=== PATIENT | male | born 1950 | race Caucasian/White ===

== ENCOUNTER → 2017-01-13 | Outpatient (CLI) | payer OTHER ==
[~2017-01-13] MED LIST: LISI20TA55 PO; SIMV20TA2 PO; TADA10TA PO
[2017-01-13 11:04] LABS: BASO % 0.3 %; BASO ABS # 0.02 K/uL (0-0.2); COMPLETE YES; EOS % 1.1 %; IG% 0.3 %; LYMPH % 22.3 %; LYMPH ABS # 1.76 K/uL (1.2-3.4); MEAN CELL VOLUME 96.6 fL (80-100); MEAN CORPUSCULAR HEMOGLOBIN 33.3 pg (25-34); MEAN CORPUSCULAR HGB CONC 34.5 g/dl (32-36); MEAN PLATELET VOLUME 10.6 fL (7.4-10.4); MONO % 6.4 %; NEUT % 69.6 %; PLATELET COUNT 184 K/uL (130-400); RED BLOOD COUNT 5.07 M/uL (4.7-6.1); WHITE BLOOD COUNT 7.91 K/uL (4.8-10.8)
[2017-01-13 11:14] LABS: PARTIAL THROMBOPLASTIN RATIO 1.1; PROTHROMBIN TIME (PATIENT) 11.2 SECONDS (9.0-12.0)
--- NOTE | 2017-01-13 11:24 | DIAGNOSTIC IMAGING REPORT ---
TWO VIEW CHEST CLINICAL HISTORY: Nephrolithiasis. Preoperative examination. FINDINGS: PA and lateral chest radiographs are compared to chest x-ray and chest CT dated 04/07/2015. The heart is mildly enlarged. The pulmonary vasculature is noncongested. The lungs and pleural spaces are clear. There is no pneumothorax. The bony thorax appears intact. IMPRESSION: No active disease in the chest. Electronically signed by: Gerard Lehman M.D. 01/13/2017 11:22 AM Dictated Date/Time: 01/13/2017 11:21 AM
[2017-01-13 11:28] LABS: ALT/SGPT 36 U/L (12-78); AST/SGOT 21 U/L (15-37); BLOOD UREA NITROGEN 24 mg/dl (7-18); BUN/CREATININE RATIO 25.4 (10-20); CALCIUM 8.8 mg/dl (8.5-10.1); CARBON DIOXIDE 29 mmol/L (21-32); CHLORIDE 103 mmol/L (98-107); CREATININE 0.96 mg/dl (0.60-1.40); GLUCOSE 92 mg/dl (70-99); SODIUM 139 mmol/L (136-145)
[2017-01-13 11:39] LABS: ALKALINE PHOSPHATASE 79 U/L (45-117); CHOLESTEROL 160 mg/dl (0-200); CHOLESTEROL/HDL RATIO 3.1; HDL CHOLESTEROL 51 mg/dl; LDL CHOLESTEROL CALCULATED 82 mg/dl; PROSTATE SPECIFIC ANTIGEN 0.355 ng/ml (0.000-4.000); TRIGLYCERIDES 133 mg/dl (0-150); VERY LOW DENSITY LIPOPROT CALC 27 mg/dl
== END | disposition home or self-care (01) ==
LOC: C.LAB 09:53
PROVIDERS: ATTEND Specialist
DX: Z01.818 Encounter for other preprocedural examination (principal); N20.0 Calculus of kidney; I10 Essential (primary) hypertension; K76.0 Fatty (change of) liver, not elsewhere classified; E78.5 Hyperlipidemia, unspecified; R35.1 Nocturia; Z11.59 Encounter for screening for other viral diseases

== ENCOUNTER → 2017-04-07 | Outpatient (CLI) | payer OTHER ==
[~2017-04-07] MED LIST changes: +ACET1TAB84 PO; +ALLO300T2 PO; +DOXY25TA7 PO; +IBUP200C14 PO; +MELATAB2 PO; +MULT-506 PO; +potassium citrate PO
[2017-04-07 16:47] LABS: ALT/SGPT 30 U/L (12-78); BLOOD UREA NITROGEN 32 mg/dl (7-18); BUN/CREATININE RATIO 26.3 (10-20); CARBON DIOXIDE 29 mmol/L (21-32); CHLORIDE 104 mmol/L (98-107); GLUCOSE 85 mg/dl (70-99); SODIUM 141 mmol/L (136-145)
[2017-04-07 16:50] LABS: ALB/GLOB RATIO 1.2 (0.9-2); ALKALINE PHOSPHATASE 68 U/L (45-117); AST/SGOT 23 U/L (15-37)
[2017-04-07 17:05] LABS: CALCIUM 9.1 mg/dl (8.5-10.1)
== END | disposition home or self-care (01) ==
LOC: C.LAB 15:33
PROVIDERS: ATTEND Internal Medicine Geriatric Medicine
DX: I10 Essential (primary) hypertension (principal)

== ENCOUNTER → 2017-04-11 | Outpatient (CLI) | payer OTHER ==
--- NOTE | 2017-04-11 09:45 | DIAGNOSTIC IMAGING REPORT ---
Brain MRA HISTORY: Mental status change R42 [id number] TECHNIQUE: 3-D [id number] MRA of the brain was performed without contrast. COMPARISON STUDY: None. FINDINGS: Visualized intracranial internal carotid arteries, distal vertebral arteries, and basilar artery are widely patent. There is no significant stenosis, occlusion, or aneurysm seen within the bilateral ACAs, MCAs, or community theater actor. IMPRESSION: No significant stenosis, occlusion, or aneurysm within the benton of [place]. Electronically signed by: Lakhwinder Sung M.D. 04/11/2017 9:44 AM Dictated Date/Time: 04/11/2017 9:40 AM
== END | disposition home or self-care (01) ==
LOC: C.MRI 08:52
PROVIDERS: ATTEND Internal Medicine Geriatric Medicine
DX: R42 Dizziness and giddiness (principal)

== ENCOUNTER → 2017-04-14 | Outpatient (CLI) | payer OTHER ==
[~2017-04-14] MED LIST changes: +GADAVIST IV PRN
--- NOTE | 2017-04-14 12:49 | DIAGNOSTIC IMAGING REPORT ---
MRI OF THE BRAIN WITHOUT AND WITH IV CONTRAST CLINICAL HISTORY: VERTIGO mental status change COMPARISON STUDY: No previous studies for comparison. TECHNIQUE: Utilizing a 1.5 Jeny magnet and dedicated coil, multiplanar, multiecho imaging of the brain was performed pre and postcontrast administration. IV administration of 8 mL of Gadavist contrast was uneventful. FINDINGS: Diffusion-weighted images are normal. Signal characteristics of the cerebellar as well as cerebral hemispheres are unremarkable. The ventricular system is midline. There is no postcontrast enhancement. The sella and parasellar regions are unremarkable. Internal artery canals are symmetric. IMPRESSION: Normal study. Electronically signed by: Lakhwinder Sung M.D. 04/14/2017 12:47 PM Dictated Date/Time: 04/14/2017 12:45 PM
== END | disposition home or self-care (01) ==
LOC: C.MRIBC 11:41
PROVIDERS: ATTEND Internal Medicine Geriatric Medicine
DX: R42 Dizziness and giddiness (principal)

== ENCOUNTER → 2017-05-18 | Outpatient (CLI) | payer OTHER ==
[~2017-05-18] MED LIST changes: -ACET1TAB84 PO; -ALLO300T2 PO; -DOXY25TA7 PO; -GADAVIST IV PRN; -IBUP200C14 PO; -MELATAB2 PO; -MULT-506 PO; -potassium citrate PO
== END | disposition home or self-care (01) ==
LOC: C.PATHSPEC 16:47
PROVIDERS: ATTEND Dermatology
DX: D23.72 Other benign neoplasm of skin of left lower limb, including hip (principal)

== ENCOUNTER → 2017-06-09 | Outpatient (CLI) | payer OTHER ==
[2017-06-09 12:35] LABS: ALT/SGPT 31 U/L (12-78); AST/SGOT 26 U/L (15-37); BLOOD UREA NITROGEN 27 mg/dl (7-18); BUN/CREATININE RATIO 24.2 (10-20); CALCIUM 8.9 mg/dl (8.5-10.1); CARBON DIOXIDE 25 mmol/L (21-32); CHLORIDE 106 mmol/L (98-107); GLUCOSE 90 mg/dl (70-99); MAGNESIUM 2.2 mg/dl (1.8-2.4); POTASSIUM 4.1 mmol/L (3.5-5.1); SODIUM 139 mmol/L (136-145); URIC ACID 8.5 mg/dl (2.6-7.2)
[2017-06-09 12:38] LABS: ALB/GLOB RATIO 1.2 (0.9-2); ALKALINE PHOSPHATASE 67 U/L (45-117)
== END | disposition home or self-care (01) ==
LOC: C.LAB 09:50
PROVIDERS: ATTEND Specialist
DX: N20.0 Calculus of kidney (principal)

== ENCOUNTER 2017-10-19 05:21 | Observation (INO) | payer OTHER ==
[2017-10-06 14:28] VITALS: BMI 34.0
--- NOTE | 2017-10-06 14:56 | PAT Medication Instructions ---
Service Date Oct 06, 2017. Current Home Medication List Acetaminophen (Tylenol Arthritis Ext Rel), 650 MG PO PRN Allopurinol (Zyloprim), 300 MG PO QAM Doxylamine Succinate (Sleep) (Unisom), 12.5 MG PO HS PRN for RN Ibuprofen (Advil), 200 MG PO PRN Lisinopril/Hctz (Prinzide 20-25MG), 0.5 TAB PO QAM Melatonin (Melatonin Maximum Strengt), 1 TAB PO HS PRN for PRN Multivitamin (Multivitamin), 0.5 TAB PO BID Simvastatin (Zocor), 20 MG PO QPM [potassium citrate], 20 MEQ PO BID Medication Instructions For Your Scheduled Surgery - Check with surgeon for instructions: Ibuprofen (Advil), 200 MG PO PRN - Hold the following medications the morning of surgery: [potassium citrate], 20 MEQ PO BID Lisinopril/Hctz (Prinzide 20-25MG), 0.5 TAB PO QAM Multivitamin (Multivitamin), 0.5 TAB PO BID - Take the following medications the morning of surgery with a sip of water: Acetaminophen (Tylenol Arthritis Ext Rel), 650 MG PO PRN (okay to take up to 4 hours prior to surgery if needed) Allopurinol (Zyloprim), 300 MG PO QAM - Take the following medications as scheduled the night before surgery: Doxylamine Succinate (Sleep) (Unisom), 12.5 MG PO HS PRN for RN (if needed) [potassium citrate], 20 MEQ PO BID Simvastatin (Zocor), 20 MG PO QPM Melatonin (Melatonin Maximum Strengt), 1 TAB PO HS PRN for PRN (if needed) Multivitamin (Multivitamin), 0.5 TAB PO BID If you have any questions please call us at [phone] or [phone] or [phone]
[2017-10-06 15:04] LABS: BASO % 0.4 %; BASO ABS # 0.02 K/uL (0-0.2); EOS ABS # 0.05 K/uL (0-0.5); HEMATOCRIT 48.7 % (42-52); HEMOGLOBIN 16.4 g/dL (14.0-18.0); IG# 0.01 K/uL (0.00-0.02); LYMPH % 35.2 %; MEAN CELL VOLUME 98.6 fL (80-100); MEAN CORPUSCULAR HEMOGLOBIN 33.2 pg (25-34); MEAN CORPUSCULAR HGB CONC 33.7 g/dl (32-36); MEAN PLATELET VOLUME 10.7 fL (7.4-10.4); MONO ABS # 0.51 K/uL (0.11-0.59); NEUT % 53.2 %; NEUT ABS # 2.73 K/uL (1.4-6.5); PLATELET COUNT 152 K/uL (130-400); RED CELL DISTRIBUTION WIDTH CV 13.3 % (11.5-14.5); RED CELL DISTRIBUTION WIDTH SD 47.8 fL (36.4-46.3); WHITE BLOOD COUNT 5.12 K/uL (4.8-10.8)
[2017-10-06 15:14] LABS: CREATININE 0.98 mg/dl (0.60-1.40); POTASSIUM 3.8 mmol/L (3.5-5.1)
[2017-10-19] VITALS (8 sets, daily range): BP systolic 100–178; BP diastolic 52–88; PULSE 46–73; TEMP 36.5–37.3; O2SAT 92–96; Ht 177.8 cm; Wt 106.9 kg
[~2017-10-19] VITALS: Ht 177.8 cm; Wt 106.9 kg
[~2017-10-19 05:21] MED LIST changes: +ACET1TAB84 PO; +ALLO300T2 PO; +DOXY25TA8 PO; +IBUP200C14 PO; +MELATAB2 PO; +MULT-506 PO; -TADA10TA PO; +potassium citrate PO
[2017-10-19] MEDS ORDERED: LACTATED RINGER'S 1000ML 1,000 ML IV SCH ×2 (06:00→12:45)
[2017-10-19] MEDS ORDERED: PROPOFOL IV EMULSION 10 MG/ML 20 ML VIAL IV ONE (06:30)
[2017-10-19] MEDS ORDERED: MIDAZOLAM HCL 1 MG/ML 2ML VIAL ONE (06:30)
[2017-10-19] MEDS ORDERED: ONDANSETRON INJ 2 MG/ML 2 ML VIAL ONE ×2 (06:30→10:34)
[2017-10-19] MEDS ORDERED: FENTANYL CITRATE INJ 50 MCG/1 ML 2 ML VIAL ONE ×3 (06:30→09:43)
[2017-10-19] MEDS ORDERED: LIDOCAINE HCL 2% 2 ML VIAL (20MG/ML) ONE (06:30)
[2017-10-19] MEDS ORDERED: ACETAMINOPHEN 1000 MG/100 ML IV IV ONE (06:52)
[2017-10-19] MEDS ORDERED: FENTANYL CITRATE INJ 50 MCG/1 ML 2 ML VIAL IV PRN (07:00)
[2017-10-19] MEDS ORDERED: ATROPINE SULFATE 0.1 MG/ML 5ML SYR IV PRN (07:00)
[2017-10-19] MEDS ORDERED: HYDROmorphone INJ 1 MG/ML SYR IV PRN (07:00)
[2017-10-19] MEDS ORDERED: EpHEDrine SULFATE INJ 50 MG/ML AMP IV PRN (07:00)
[2017-10-19] MEDS ORDERED: PROMETHAZINE HCL INJ 12.5 MG in SODIUM CHLORIDE 0.9% 50ML 50 ML IV PRN (07:00)
[2017-10-19] MEDS ORDERED: ONDANSETRON INJ 2 MG/ML 2 ML VIAL IV PRN ×2 (07:00→10:30)
[2017-10-19] MEDS ORDERED: BACITRACIN 50000 UNIT VIAL ONE (07:02)
[2017-10-19] MEDS ORDERED: BUPIVACAINE 0.5 % 5 MG/1 ML MPF 30ML VIAL ONE (07:02)
[2017-10-19] MEDS ORDERED: OXYC-57 PO (07:38)
--- NOTE | 2017-10-19 07:41 | Discharge Instructions ---
Discharge Instructions Date of Service Oct 19, 2017. Visit Reason for Visit: Bilateral Inguinal Hernia Discharge Discharge Diagnosis / Problem: hernia repair Discharge Goals Goal(s): Decrease discomfort Activity Recommendations Activity Limitations: as noted below Lifting Limitations: no more than 10 pounds Shower/Bathe: tomorrow Driving or Machine Use: 1 week Anesthesia . Post Anesthesia Instructions: If you have had General Anesthesia or IV Sedation: * Do not drive today. * Resume driving when surgeon permits. * Do not make important decisions or sign legal documents today. * Call surgeon for: 1. Temperature elevations greater than 101 degrees F. 2. Uncontrollable pain. 3. Excessive bleeding. 4. Persistent nausea and vomiting. 5. Medication intolerance (nausea, vomiting or rash). * For nausea and vomiting use only clear liquids such as: tea, soda, bouillon until nausea subsides, then gradually increase diet as tolerated. * If you have any concerns or questions, call your surgeon's office. If physician is unavailable and it is an emergency, call 911 or go to the nearest emergency room. . Instructions / Follow-Up Instructions / Follow-Up Dr. Blue in 1 week, call [phone] if you do not already have an appt or if you have any questions Diet Recommendations Recommended Home Diet: no limitations Pending Studies Studies pending at discharge: no Medical Emergencies . Who to Call and When: Medical Emergencies: If at any time you feel your situation is an emergency, please call 911 immediately. . Non-Emergent Contact Non-Emergency issues call your: Surgeon Call Non-Emergent contact if: you have a fever, temperature is above 101.5, your pain is not controlled, wound has increased redness, you have any medication questions . . "Provider Documentation" section prepared by Alexsander Lam. . [place] Drug Monitoring Program Search Results: no issues identified
--- NOTE | 2017-10-19 08:04 | History & Physical Bridge Note ---
H&P Re-Evaluation Bridge Note: I have examined the patient, reviewed the History & Physical and in the interval since the performance of the History & Physical I have noted the following changes of clinical significance: No changes noted pt marked, SO at bedside, all questions answered
[2017-10-19] MEDS: BUPIVACAINE 0.5 % 5 MG/1 ML MPF 30ML VIAL ONE ×2 (10:15→10:16)
[2017-10-19] MEDS ORDERED: OXYCODONE/ACETAMINOPHEN 5-325 TAB PO PRN (10:30)
[2017-10-19] MEDS ORDERED: MoRPHine SULFATE 4 MG/ML 1 ML CARP\\VIAL IV PRN (10:30)
[2017-10-19] MEDS ORDERED: GLYCOPYRROLATE INJ 0.2 MG/ML VIAL ONE (10:34)
[2017-10-19] MEDS ORDERED: ROCURONIUM BROMIDE 10 MG/ML 5 ML VIAL IV ONE (10:34)
[2017-10-19] MEDS ORDERED: DEXAMETHASONE SOD INJ 4 MG/ML VIAL ONE (10:34)
[2017-10-19] MEDS ORDERED: NEOSTIGMINE METHYLSULFATE 5 MG/5 ML SYR ONE (10:34)
--- NOTE | 2017-10-19 10:40 | [facility] Operative Report ---
Operative Report Operative Date Oct 19, 2017. Pre-Operative Diagnosis Bilateral inguinal hernias without obstruction or gangrene Post-Operative Diagnosis Bilateral inguinal hernias without obstruction or gangrene left direct with indirect sliding and lipoma cord, right direct and liupoma cord Procedure(s) Performed Open repair left direct, excision lipoma of cord and indirect sliding left inguinal hernia with mesh and open repair of direct right inguinal hernia and direct and excision lipoma of cord with mesh Surgeon Dr. Pito Blue Desktop Publishing Associate Surgeon(s) Alexsander Lam PA-C Estimated Blood Loss 10 mL Findings large left direct and sliding ind hernia and lipoma cord, right direct and lipoma cord Specimens Microbiology #1. Cath, Urine Routine C/S, Gram Stain, Anerobic/Aerobic, Fungal/Yeast Sent to lab at 0840, carried by OR aide. Permanent specimens A: Left Inguinal Hernia Sac B: Lipoma of Cord, Right Anesthesia local block .5 % marcAINE PLAIN (30CC TOTAL) AND GENERAL ANESTHESIA I attest to the content of the Intraoperative Record and any orders documented therein. Any exceptions are noted below.
--- NOTE | 2017-10-19 11:07 | Anesthesiology Progress Note ---
Anesthesia Post Op Note Date & Time Oct 19, 2017 at 11:07 Vital Signs Pain Intensity: 0 Vital Signs Past 12 Hours Date Time Temp Pulse Resp B/P (MAP) Pulse Ox O2 Delivery O2 Flow Rate FiO2 10/19/17 11:00 52 12 133/76 98 Oxymask 3 10/19/17 10:50 54 12 147/78 97 Oxymask 3 10/19/17 10:40 59 12 138/76 95 Oxymask 5 10/19/17 10:30 36.4 62 12 140/82 99 Oxymask 5 10/19/17 05:42 36.6 62 18 154/72 (99) 95 Room Air Notes Mental Status: alert / awake / arousable, participated in evaluation Pt Amnestic to Procedure: Yes Nausea / Vomiting: adequately controlled Pain: adequately controlled Airway Patency, RR, SpO2: stable & adequate BP & HR: stable & adequate Hydration State: stable & adequate Anesthetic Complications: no major complications apparent
--- NOTE | 2017-10-19 11:57 | OPERATIVE REPORT ---
DATE OF OPERATION: 10/19/2017 PREOPERATIVE DIAGNOSIS: Bilateral inguinal hernia. POSTOPERATIVE DIAGNOSIS: Same with left indirect (sliding) hernia and direct hernia, lipoma of the cord, right direct hernia and lipoma of the cord. PROCEDURE: Bilateral inguinal hernia repairs, tension free with Marlex mesh and excision lipoma of the cord. SURGEON: Dr. Blue. ENGINEER BOOSTER AND EXHAUSTER: Scott Lam PA-C. OPERATION AND FINDINGS: SUMMARY: The patient was brought into the operating room theater, Eric catheter had been inserted. The abdomen was prepped with Betadine scrubbing solution and properly draped. We used a skin marker to zoraida the skin incision prior to making the incision and prior to prepping the patient. Incision was made first in the left lower quadrant, so the patient had more symptomatic hernia there, larger hernia. The incision was approximately 4 inches long, deepened through subcutaneous tissue down to the external oblique. Some vessels were ligated in the subQ with 2-0 silk. External oblique was opened along the course of its fibers in the external ring. What I identified at this time was that we elevated the cord and its structures, the patient had a significant amount of tissue going through, pretty much no wall left in the inguinal canal and also as we dissected out, we were able to find an indirect hernia which showed a sigmoid colon sliding component to the area. That opening that we had made was closed with running chromic suture, therefore we did not dissect out and cut out any of the lateral attachments to the hernial sac. We freed it up sequentially from the surrounding tissue, identified the cord and its structures, adherent to the hernia sac over a Poca drain. Once we freed this up, we also identified the patient had a lipoma of the cord coming through which we ligated at its base at the internal ring and resected it. Once this had been completed, then we brought in a sheet of Marlex mesh onto the field, a large sheet that we used for both hernias. At this point prior to repairing the left inguinal area since he had a significant amount of direct defect we imbricated some transversalis fibers with interrupted 3-0 silk suture to really get it out of the way reconstructing the internal ring pretty much that could only accommodate a hemostat. There was no nervous tissue on the left side that was easily identifiable. There was one fine nerve that seemed to be incorporated and strangulated as it went through the external oblique. Rather than leave it I decided to sacrifice it. The mesh was brought up on the field and sutured with 2-0 Prolene suture. The symphysis pubis, shelving portion inguinal ligament, above the conjoined tendon circumferentially around to reconstruct the internal ring that could only accommodate the tip of a hemostat. The fascia pretty much was placed subfascially external oblique, 3-0 silk was used to the external oblique fascia over the mesh. 2-0 Vicryl was used for the subQ. Paresh we didn't use at this time, we will wait until the end to close the skin incision. When this was completed the right lower quadrant was approached in a similar fashion using preemptive local analgesia with 0.5% Marcaine infiltrated the skin only 2 fingerbreadths medial anterior to the iliac crest, made an incision which we tried to make a mirror image to the left lower quadrant, deepened through subcutaneous tissue. Some larger venous plexus were ligated with 2-0 silk sutures. At this point we dissected down onto the external oblique. The external oblique was opened along the course of its fibers to the external ring. We could identify that the patient had an incarcerated omental fat at the external ring. This is returned that would be a large lipoma of the cord, it actually had gone through and had been longstanding in the external oblique fascia and the cord structures. We elevated this, we identified that the cord over a Poca drain, identified the patient had a direct defect. There is no indirect component except a lipoma which we resected, ligating its base with 2-0 silk suture. At this point, we then brought in a sheet of Marlex mesh and sutured it onto the symphysis pubis, shelving portion and conjoined tendon with 2-0 Prolene suture. Prior to doing that, to get the direct defect which the patient, he did not have an indirect hernia and pushed everything into the preperitoneal area by approximating some transversalis fascia. The mesh was adherent, cut tension free type. The external oblique was closed mesh and the cord structure with 2-0 silk suture, 3-0 Dexon and paresh for skin edges bilaterally. The procedure was tolerated well by the patient. Estimated blood loss approximately 10 mL for both sides total and was taken to recovery room in good condition. I attest to the content of the Intraoperative Record and any orders documented therein. Any exceptions are noted below. MTDD
[2017-10-19] MEDS ORDERED: IV FLUIDS COMPLETED PRN (12:15)
[2017-10-19] MEDS: LISINOPRIL/HCTZ 20/25MG TAB PO SCH (15:08)
--- NOTE | 2017-10-19 15:30 | NUR ---
OBS/ID: Patient is alert and oriented. Vitals stable on RA. Disconnected IVF per order. Patient is voiding adequately. (I) in room without concern. Tolerating diet without issue. B groin dressing intact, R dressing without noted drainage which seems to be controlled/stopping as drainage is darkening/drying. Denies pain complaints. Likely discharge to home tomorrow. Will continue to monitor.
--- NOTE | 2017-10-19 20:00 | NUR ---
OBS: No change from previous assessment.
[2017-10-19] MEDS ORDERED: DOXYLAMINE SUCCINATE 25 MG PO PRN ×2 (20:15→20:30)
[2017-10-19] MEDS ORDERED: NURSING VERBAL MED ORDER ONE (21:00)
[2017-10-19] MEDS: POTASSIUM CITRATE 10 MEQ TAB PO SCH (21:32)
--- NOTE | 2017-10-20 | NUR ---
OBS: Patient alert and oriented x4. Saline locked. Pain managed with PO medications. OOB independently. Call girard in reach, will continue to monitor.
[2017-10-20] MEDS: OXYCODONE/ACETAMINOPHEN 5-325 TAB PO PRN ×2 (00:13→04:16)
[2017-10-20 03:22] VITALS: BP 111/55; PULSE 60; TEMP 37; O2SAT 93
--- NOTE | 2017-10-20 04:00 | NUR ---
OBS: Patient resting in bed at this time. Pain managed with PO medications. Call girard in reach, will continue to monitor.
--- NOTE | 2017-10-20 07:04 | Discharge Instructions ---
Discharge Instructions Date of Service Oct 20, 2017. Admission Reason for Admission: Bilateral Inguinal Hernia Discharge Discharge Diagnosis / Problem: bilateral inguinal hernia repair Discharge Goals Goal(s): Decrease discomfort Activity Recommendations Activity Limitations: as noted below Lifting Limitations: no more than 10 pounds Shower/Bathe: no limitations (ok to shower today) Driving or Machine Use: 1 week . Instructions / Follow-Up Instructions / Follow-Up Dr. Blue in approx 1 week, call [phone] if you do not already have an appt or have any questions Current Hospital Diet Patient's current hospital diet: AHA Diet (Heart Healthy) Discharge Diet Recommended Diet: Regular Diet Procedures Procedures Performed: Open repair left direct, excision lipoma of cord and indirect sliding left inguinal hernia with mesh and open repair of direct right inguinal hernia and direct and excision lipoma of cord with mesh Pending Studies Studies pending at discharge: no Medical Emergencies . Who to Call and When: Medical Emergencies: If at any time you feel your situation is an emergency, please call 911 immediately. . Non-Emergent Contact Non-Emergency issues call your: Surgeon Call Non-Emergent contact if: you have a fever, temperature is above 101.5, your pain is not controlled, wound has increased redness, you have any medication questions . "Provider Documentation" section prepared by Alexsander Lam. . VTE Core Measure Inpt VTE Proph given/why not?: SCD's
--- NOTE | 2017-10-20 07:06 | Surgery Progress Note ---
Surgery Progress Note Date of Service Oct 20, 2017. Subjective Post OP Day: 1 + feeling well, + pain controlled, No nausea Objective Vital Signs: Date Time Temp Pulse Resp B/P (MAP) Pulse Ox O2 Delivery O2 Flow Rate FiO2 10/20/17 03:22 37.0 60 16 111/55 (73) 93 Room Air 10/20/17 00:20 CPAP 10/19/17 23:08 36.9 60 16 100/52 (68) 92 CPAP 10/19/17 18:59 37.3 73 16 132/77 (95) 92 Room Air 10/19/17 15:30 Room Air 10/19/17 14:52 64 16 137/78 (97) 94 Room Air 10/19/17 13:51 65 18 178/85 (116) 93 Nasal Cannula 10/19/17 12:52 48 16 163/88 (113) 96 Nasal Cannula 2.0 10/19/17 12:16 46 19 138/83 (101) 94 Nasal Cannula 2.0 10/19/17 11:45 95 Nasal Cannula 2.0 10/19/17 11:45 36.5 53 16 153/86 (108) 95 Nasal Cannula 2.0 10/19/17 11:20 52 16 124/66 97 Nasal Cannula 2 10/19/17 11:10 36.5 48 14 133/76 97 Nasal Cannula 2 10/19/17 11:00 52 12 133/76 98 Oxymask 3 10/19/17 10:50 54 12 147/78 97 Oxymask 3 10/19/17 10:40 59 12 138/76 95 Oxymask 5 10/19/17 10:30 36.4 62 12 140/82 99 Oxymask 5 Abdomen: non distended, soft Incision(s): clean, dry Laboratory Results: Results Past 24 Hours Test 10/19/17 17:00 Range/Units Urine Color YELLOW Urine Appearance CLEAR CLEAR Urine pH 7.0 4.5-7.5 Urine Specific [place] 1.008 1.000-1.030 Urine Protein NEG NEG Urine Glucose (UA) NEG NEG Urine Ketones NEG NEG Urine Occult Blood 1+ NEG Urine Nitrite NEG NEG Urine Bilirubin NEG NEG Urine Urobilinogen NEG NEG Urine Leukocyte Esterase NEG NEG Urine WBC (Auto) 0 0-5 /hpf Urine RBC (Auto) 0-4 0-4 /hpf Urine Hyaline Casts (Auto) 0 0-5 /lpf Urine Epithelial Cells (Auto) 0-5 0-5 /lpf Urine Bacteria (Auto) NEG NEG Microbiology Results 10/19/17 Fungal Smear - Final, Resulted 10/19/17 Fungal Culture, Resulted Pending 10/19/17 Urine Culture, Received Pending Assessment & Plan s/p bilat open inguinal hernia repairs tolerating po analgesics ambulating ok for discharge
[2017-10-20 07:11] VITALS: BP 126/64; PULSE 67; TEMP 37; O2SAT 92
--- NOTE | 2017-10-20 08:00 | NUR ---
OBS: A&Ox4, denies need for pain medication. Room air. Tolerating diet. Voiding without difficulty. Independent in room. Saline locked. Incisions are intact, healing. Awaiting discharge paperwork. Call girard in reach. Will monitor for changes.
--- NOTE | 2017-10-20 08:00 | SURGERY PROGRESS NOTE ---
DATE: 10/20/2017 DATE: 10/20/2017 Melo is first postoperative day status post bilateral open inguinal hernia repair. He is resting comfortably, having minimal discomfort. His last vitals showed a temperature of 37, pulse 67, respirations 18, blood pressure 126/64, O2 sats 92 on room air. He is voiding without any problem. The abdomen is benign. The incisions are free of any drainage. He does have a little reaction, probably inferior to both distal aspects of the incision, may be associated where we used local anesthetic, but nothing significant as far as any sign of infection. As stated though pain free. The intraoperative findings were discussed with the patient. At this point, he can be discharged. Instructions were given regarding wound care, diet, activity, and followup.
--- NOTE | 2017-10-20 08:29 | Anesthesiology Progress Note ---
Anesthesia Post Op Note Date & Time Oct 20, 2017 at 08:29 Vital Signs Pain Intensity: 7.0 Vital Signs Past 12 Hours Date Time Temp Pulse Resp B/P (MAP) Pulse Ox O2 Delivery O2 Flow Rate FiO2 10/20/17 07:15 Room Air 10/20/17 07:11 37.0 67 18 126/64 (84) 92 Room Air 10/20/17 03:22 37.0 60 16 111/55 (73) 93 Room Air 10/20/17 00:20 CPAP 10/19/17 23:08 36.9 60 16 100/52 (68) 92 CPAP Notes Mental Status: alert / awake / arousable, participated in evaluation Pt Amnestic to Procedure: Yes Nausea / Vomiting: adequately controlled Pain: adequately controlled Airway Patency, RR, SpO2: stable & adequate BP & HR: stable & adequate Hydration State: stable & adequate Anesthetic Complications: no major complications apparent
[2017-10-20] MEDS: POTASSIUM CITRATE 10 MEQ TAB PO SCH (08:32)
[2017-10-20] MEDS: LISINOPRIL/HCTZ 20/25MG TAB PO SCH (08:34)
[2017-10-20] MEDS ORDERED: ALLOPURINOL 300 MG TAB PO SCH (09:00)
[2017-10-20 09:12] VITALS: BP 126/64; PULSE 67; TEMP 37; O2SAT 92
--- NOTE | 2017-10-24 17:03 | DISCHARGE SUMMARY ---
PRIMARY DISCHARGE DIAGNOSIS: 1. Bilateral inguinal hernias. SECONDARY DISCHARGE DIAGNOSES: 1. Hypertension. 2. Sleep apnea. PROCEDURE PERFORMED: Bilateral inguinal hernia repair with mesh. HOSPITAL COURSE: The patient is a 67-year-old male brought in through same day and taken to the operating room for bilateral open inguinal hernia repairs. He had a large indirect hernia on the left and a right direct inguinal hernia. The procedure was well tolerated. He was transferred to the surgical floor for overnight observation. On postoperative day 1, he was tolerating diet and oral analgesics. Incisions were clean and dry. He was stable for discharge. DISCHARGE INSTRUCTIONS: Discharge home. Follow up with Dr. Blue in 1 week. DISCHARGE MEDICATIONS: Percocet 1-2 tablets every 4 hours as needed. Hold additional Tylenol Arthritis until he is finished with the Percocet. Resume other home medications allopurinol 300 mg daily, Unisom 12.5 mg at bedtime as needed, ibuprofen 200 mg as needed, Prinzide 20/25 mg 1/2 tablet daily, melatonin 1 tablet at bedtime as needed, daily multivitamin, Zocor 20 mg daily, and potassium citrate 20 mEq b.i.d. MTDD
== END 2017-10-20 10:00 | disposition home or self-care (01) ==
LOC: C.ACU 05:21 → C.MSW 10:28 → ENRESERV 11:14
PROVIDERS: ADMIT Surgery; ATTEND Surgery
DX: K40.20 Bilateral inguinal hernia, without obstruction or gangrene, not specified as recurrent (principal); D17.6 Benign lipomatous neoplasm of spermatic cord; E78.5 Hyperlipidemia, unspecified; H91.90 Unspecified hearing loss, unspecified ear; I10 Essential (primary) hypertension; E04.2 Nontoxic multinodular goiter; G47.33 Obstructive sleep apnea (adult) (pediatric); M16.9 Osteoarthritis of hip, unspecified; Z82.49 Family history of ischemic heart disease and other diseases of the circulatory system; Z80.42 Family history of malignant neoplasm of prostate; Z84.1 Family history of disorders of kidney and ureter; Z79.899 Other long term (current) drug therapy

== ENCOUNTER → 2017-12-20 | Outpatient (CLI) | payer OTHER ==
[~2017-12-20] MED LIST changes: -ACET1TAB84 PO; +OXYC-57 PO
--- NOTE | 2017-12-20 10:31 | DIAGNOSTIC IMAGING REPORT ---
SOFT TISS HEAD/NECK-THYROID HISTORY: Goiter NON TOXIC MULTINODULAR GOITER COMPARISON: 10/31/2014 FINDINGS: Right lobe: Diffuse heterogeneous multinodular gland. Mild increase in maximum dimension to 10.5 cm. Largest right thyroid nodule measures approximately 4.9 cm at maximum which is generally similar compared to the prior study. Left lobe: Diffuse heterogeneous multinodular configuration. Slight increase in maximum dimension compared to the prior study currently at 8.0 cm. This is increased from 6.8 cm. Multinodular appearance with the largest measuring 2.3 cm. This is similar compared to the prior study. Isthmus: No nodules. IMPRESSION: 1. Diffuse heterogeneous and multinodular thyroid showing a slight increase in overall volume compared to the prior study. 2. No major change in the diffuse nodularity compared to the prior exam. The above report was generated using voice recognition software. It may contain grammatical, syntax or spelling errors. Electronically signed by: Lakhwinder Sung M.D. 12/20/2017 10:29 AM Dictated Date/Time: 12/20/2017 10:26 AM
== END | disposition home or self-care (01) ==
LOC: C.ULTRBC 09:14
PROVIDERS: ATTEND Internal Medicine Geriatric Medicine
DX: E04.2 Nontoxic multinodular goiter (principal)

== ENCOUNTER → 2018-01-08 | Outpatient (CLI) | payer OTHER | END | disposition home or self-care (01) | LOC: C.PATHSPEC 16:35 | PROVIDERS: ATTEND Dermatology | DX: L57.0 Actinic keratosis (principal) ==